=== PATIENT | female | born 1935 | race Caucasian/White ===

== ENCOUNTER 2017-05-10 06:32 | Inpatient (IN) | payer MEDICARE ==
--- NOTE | ~2017-05-10 | OP ---
Record Of Operation [facility] [address] [place]. [address] NAME: DEXTER RIVERA : 35 STATUS : ADM IN PAT#: [id number] AGE: 82 ADM/REG DATE : 05/10/17 MR#: [id number] REPORT SERV DATE: 05/11/17 DICTATED BY: CLIFF CAIN DATE: 05/10/17 REPORT STATUS : Draft TRANSCRIBED BY: MODCassia DATE: 05/10/17 DATE OF PROCEDURE: 05/10/2017 PREOPERATIVE DIAGNOSES: 1. Aortic valve stenosis. 2. Acute on chronic diastolic heart failure. 3. Osteoarthritis. POSTOPERATIVE DIAGNOSES: 1. Aortic valve stenosis. 2. Acute on chronic diastolic heart failure. 3. Osteoarthritis. PROCEDURE PERFORMED: 1. Right transfemoral transcatheter aortic valve replacement, 23 mm S3 (pericardial) valve. 2. Left femoral venous placement of temporary ventricular pacemaker. 3. ProGlide closure of the right femoral artery x2 and left femoral artery x1. 4. Ascending aortography. 5. Right iliac angiography. 6. Transthoracic echocardiography. ZONE MAINTENANCE TECHNICIAN: Dr. Laureano Sampson. TABLEAU DEVELOPER: Wily Reaves. PRIMARY CARE CRYPTOLOGIC TECHNICIAN TECHNICAL: Dr. Bates. PRIMARY CARE PHYSICIAN: Dr. Rancho Elliott. 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 She has progressive dyspnea with exertion and fatigue and occasional chest discomfort. She has known aortic valve stenosis. On echocardiography, her ventricular function was good with an EF of 55%. Her valve area was estimated at 0.53 sq cm. Her peak gradient was 60 mmHg and mean gradient of 32 mmHg. Cardiac catheterization demonstrated nonobstructive coronary artery disease with good ventricular function, valve area and elevated gradients were confirmed. We were asked to see the patient for possible evaluation for aortic valve replacement. It was felt that the patient was at least intermediate risk patient and that consideration for TAVR procedure be performed. She was discussed with the TAVR conference and it was felt that the patient would be a suitable candidate for possible TAVR and this was shared with the family, who wished to proceed. FINDINGS AT OPERATION: 1. Total time of rapid pacing is 23 seconds. Actual time of TAVR deployment was 0911 hours. 2. Pre-deployment cardiac output 3.4, post-deployment cardiac output 4.5. Record Of Operation [facility] [address] [place]. [address] NAME: DEXTER RIVERA : 35 STATUS : ADM IN PAT#: [id number] AGE: 82 ADM/REG DATE : 05/10/17 MR#: [id number] REPORT SERV DATE: 05/11/17 DICTATED BY: CLIFF CAIN DATE: 05/10/17 REPORT STATUS : Draft TRANSCRIBED BY: MODCassia DATE: 05/10/17 3. Valve area pre-deployment 0.58. Post-deployment valve area 2.2 sq cm. 4. Pre-implant aortic pressures: Systolic 108, diastolic 54, mean 73 mmHg. Post-implant aortic pressures: Systolic 109, diastolic 60, mean 77 mmHg. 5. Pre-implant AV gradient: Mean 29, peak at 26 mmHg. Post-implant AV gradient: Mean 4, peak 4 mmHg. 6. Total contrast volume used 85 mL. #8 fluoro time was 14.0 minutes. #9 estimated blood loss less than 50 mL. 7. Total mGy used was 858. 8. AI index was 45. 9. Transthoracic echocardiography demonstrated only trace perivalvular leak following deployment. 10.Right femoral artery had mild (40-50%) lesion following ProGlide placement on the right side. Pedal pulses were present. 11.Bilateral pedal pulses were present on transfer to the intensive care unit. The patient was awake and doing well. PATHOLOGIC SPECIMENS: None. DESCRIPTION OF PROCEDURE: The patient was brought to the operating suite in the hybrid area. She was placed on the hybrid operating table and laid in a supine position. She was sedated and given MAC anesthesia by anesthesia provider. The patient's abdomen, groin, and legs were prepped with Hibiclens and ChloraPrep and draped with Ioban sterile sheets. Bilateral femoral artery and left femoral venous access was obtained using micropuncture technique with catheter placement and a confirmatory angiography for the femoral arteries. A 6-Mexican introducers were placed in each vessel. Temporary ventricular venous pacemaker advanced up the left femoral vein, and under fluoroscopic guidance, placed in the right ventricle. Pacing thresholds were then confirmed and adequate thresholds were obtained. Then, a pigtail catheter with guidewire was advanced up the left femoral artery sheath into the ascending aorta and the pigtail catheter advanced into the noncoronary sinus. The plummet angles for cinematography were then confirmed with blush aortography. Next, guidewire was placed through the right femoral artery sheath and this was removed. Two ProGlide closure devices were deployed in the right femoral artery and not secured. Then, after the 2nd ProGlide was placed, an exchange catheter was placed and the Lunderquist wire advanced into the ascending aorta. The Montesinos sheath was brought up to the field and this was advanced into the descending thoracic aorta. Then, an AL1 catheter was advanced over the Lunderquist wire which was removed and a straight wire advanced through the AL1 catheter just above the aortic valve. We then crossed the valve and the AL1 catheter was left in place and the pigtail wire advanced through the AL1 catheter into the left ventricular apex. Then, a pigtail catheter was advanced up into the left ventricle and simultaneous pressure readings were obtained in the ascending aorta, left ventricle. Next, an extra stiff guidewire was advanced through the pigtail catheter and placed into the Record Of [address] [place]. [address] NAME: DEXTER RIVERA : 35 STATUS : ADM IN [facility]#: [id number] AGE: 82 ADM/REG DATE : 05/10/17 MR#: [id number] REPORT SERV DATE: 05/11/17 DICTATED BY: CLIFF CAIN DATE: 05/10/17 REPORT STATUS : Draft TRANSCRIBED BY: ARCHANA DATE: 05/10/17 left ventricle. Then, the Montesinos delivery system with the valve in place was brought up to the field. The patient was heparinized at the time of sheath placement. The Montesinos delivery system was advanced into the descending thoracic aorta where the balloon deployment system was back onto the valve. We then advanced the delivery system up around the aortic arch and across the valve. Then, alignment of the valve was performed. Rapid atrial pacing was begun and power injector contrast aortography performed and confirmed the positioning of the valve. Then, the valve was deployed using the balloon. Once this was completed, the valve delivery system was brought back into the descending thoracic aorta while leaving the extra stiff wire in the ventricle. Blush aortography demonstrated minimal AI. Echocardiography also confirmed minimal or trace perivalvular leak. Then, the valve delivery system was brought out of the right femoral artery sheath. The extra stiff wire was removed and the exchange catheter placed in the right femoral artery. The sheath was then removed from the right femoral artery and the two ProGlide closure devices were secured. Good hemostasis was obtained. The pigtail catheter in the left femoral artery was then brought back down to the aortic bifurcation and right iliofemoral angiography was performed demonstrating a small notch in the right femoral artery that was considered to be less than 50%. Pedal pulses were present on the right side. Then, a straight guidewire was advanced and the pigtail catheter removed from the left femoral artery. Six-Mexican sheath was removed. The left femoral artery site was closed using a single ProGlide closure device. The [place]rysten catheter was removed by Anesthesia from the right IJ. The temporary venous pacemaker was removed from the left femoral vein. The patient tolerated the procedure well. There were no complications. DISPOSITION: The patient was taken to the intensive care unit, extubated in stable condition with good pedal pulses. ALLI/ARCHANA Cliff Cain M.D. / [id number] CC: Madison Azar M.D. FREDERICK DIBRELL, MD
--- NOTE | ~2017-05-10 | OP ---
Record Of Operation [facility] [address] [place]. [address] NAME: BENJAMIN KULKARNI : 35 STATUS : ADM IN [facility]#: [id number] AGE: 82 ADM/REG DATE : 05/10/17 MR#: [id number] REPORT SERV DATE: 05/10/17 DICTATED BY: OLAYINKA PIERRE DATE: 05/10/17 REPORT STATUS : Draft TRANSCRIBED BY: ARCHANA DATE: 05/10/17 DATE OF PROCEDURE: TAVR Note PROCEDURE: Right transfemoral transcatheter aortic valve replacement using 23 mm Montesinos S3 valve. INDICATION FOR THE PROCEDURE: Ms. Benjamin Kulkarni is an 82-year-old woman, with severe aortic stenosis. Her echocardiogram demonstrated a valve area of 0.5, mean gradient 32, peak gradient 60, EF of 55%. Catheterization demonstrated no obstructive disease with severe AF, valve area of 0.6, mean gradient 36. She was seen by both Dr. Cain and Dr. Evangelista, who felt she was at high risk for surgical aortic valve replacement and should be referred for transcatheter aortic valve replacement. Her predicted mortality using STS score 3.8%, predicted morbidity and mortality 18.5%. Morbidity and mortality by the EuroSCOR was 3.6%. She presents with [place] Heart Association class 2-3 symptoms. POSTOPERATIVE DIAGNOSIS: Successful placement of Montesinos 23 mm S3 valve via right transfemoral approach. OPERATORS: 1. Cliff Cain M.D. 2. Olayinka Pierre M.D. 3. Laureano Sampson M.D. OPERATIVE TECHNIQUE: The patient was prepped and draped in the usual sterile fashion. She received propofol anesthesia. She was not intubated. She did have a radial A-line and a right heart catheter. She did not have a Britt catheter. The right and left groins were anesthetized with lidocaine 1%, 12 mL. Access of both left and right femoral artery was obtained using the micropuncture technique, angiogram confirmed access to common femoral artery, 6-Turkmen sheaths were placed. A 6-Turkmen sheath was placed in the left femoral vein as well. The pacemaker was inserted via the left femoral vein, a pigtail catheter was placed via the left femoral artery to allow positioning of the valve. She received heparin IV, activating clotting time was therapeutic. Two ProGlide sutures were placed in the right femoral artery at the 10 o'clock and 2 o'clock position in the pre- close technique. We then placed the J-wire through the right femoral artery sheath, a multipurpose catheter was placed into the ascending aorta, the Lunderquist wire was placed into the ascending aorta through the multipurpose catheter. Record Of Operation [facility] [address] [place]. [address] NAME: BENJAMIN KULKARNI : 35 STATUS : ADM IN PAT#: [id number] AGE: 82 ADM/REG DATE : 05/10/17 MR#: [id number] REPORT SERV DATE: 05/10/17 DICTATED BY: OLAYINKA PIERRE DATE: 05/10/17 REPORT STATUS : Draft TRANSCRIBED BY: ARCHANA DATE: 05/10/17 We then dilated the right femoral artery and then placed the Montesinos sheath. We then delivered the Montesinos valve. The valve was positioned in the descending thoracic aorta. We crossed the [place] valve without difficulty. With rapid ventricular pacing the valve was deployed. Post deployment, the echocardiogram demonstrated trivial aortic insufficiency. Thoracic aortogram without the wire demonstrated no aortic insufficiency. We measured the pressures between the left ventricle and the ascending aorta. We then removed the Montesinos sheath over the J-wire. The ProGlide sutures were tightened into position. The completion angiogram demonstrated no stenosis and no extravasation from the access site. The left femoral artery sheath was removed, a ProGlide suture was placed in the left femoral artery as well. The pacemaker was removed. The right heart catheter was removed. The total rapid pacing time was 23 seconds. The actual time of valve deployment was 09:11 a.m. The cardiac output pre deployment 3.4 L/minute, post deployment 4.5 L/minute. The valve area pre-deployment was 0.6 cm2, post deployment valve area was 2.2 cm2. The blood pressure pre-deployment was 108/54, mean 73, heart rate 69. Post deployment blood pressure was 109/60, mean 77, heart rate 77. The gradient pre-deployment was 29 mmHg mean, peak 26 mmHg. Post deployment the mean gradient was 4 mmHg, peak gradient 4 mmHg. Total contrast volume used 85 mL. The fluoro time was 14 minutes. The estimated blood loss was less than 50 mL. Total radiation dose was 858 mGy. The AI index was 45. Again, the chest wall echo demonstrated trivial AI, thoracic aortogram demonstrated no AI. In short, the patient underwent a right transfemoral transcatheter aortic valve replacement using a 23 mm Montesinos valve. Two ProGlide sutures were used at the access site. There was no AI by thoracic aortogram, trace AI by the chest wall echo. The patient will be treated with the clopidogrel and aspirin for six months. VAISHALI/ARCHANA Olayinka Pierre M.D. / [id number] Record Of [address] [address] NAME: BENJAMIN KULKARNI : 35 STATUS : ADM IN [facility]#: [id number] AGE: 82 ADM/REG DATE : 05/10/17 MR#: [id number] REPORT SERV DATE: 05/10/17 DICTATED BY: OLAYINKA PIERRE DATE: 05/10/17 REPORT STATUS : Draft TRANSCRIBED BY: ARCHANA DATE: 05/10/17 CC: Cliff Cain M.D.
[~2017-05-10 06:32] MED LIST: AMOXIL500 MG PO; ASAB PO; B12 SL; CALTRA600D PO; CENTRUM TAB1 TAB PO; FOSAMAX70 MG PO; GLUCCHONDR PO; PRILOSEC OTC20 MG PO; T PO; VITAMIN D31000 UNIT PO
[2017-05-10 10:48] LABS: BASOPHILS 0.6 %; BASOPHILS ABSOLUTE 0.03 10/3/uL (0.0-0.16); EOSINOPHILS 2.1 %; HEMOGLOBIN 10.8 g/dL (12.0-16.0); IMMATURE GRANULOCYTES 0.2 %; IMMATURE GRANULOCYTES ABSOLUTE 0.01 10/3/uL (0.0-0.11); LYMPHOCYTES ABSOLUTE 1.76 10/3/uL (0.67-4.30); MEAN CORPUS HGB CONC 33.5 g/dL (32.0-36.0); MEAN CORPUSCULAR HEMOGLOB 33.3 pg (26.0-34.0); MEAN CORPUSCULAR VOLUME 99.4 fL (80-100); MEAN PLATELET VOLUME 10.1 fL (9.2-13.0); MONOCYTES 9.2 %; MONOCYTES ABSOLUTE 0.44 10/3/uL (0.21-1.20); NEUTROPHILS 50.9 %; NEUTROPHILS ABSOLUTE 2.42 10/3/uL (2.02-8.40); PLATELET COUNT 149 10/3/uL (150-400); RED CELL COUNT 3.24 10/6/uL (4.0-5.6); WHITE BLOOD CELLS 4.8 10/3/uL (4.5-10.5)
[2017-05-10 10:49] LABS: HEMATOCRIT 32.2 % (36.0-48.0); MANUAL DIFF NO %
[2017-05-10 10:58] LABS: BUN (BLOOD UREA NITROGEN) 14 MG/DL (6-23); CALCIUM, SERUM 7.9 MG/DL (8.5-10.4); CHLORIDE, SERUM 106 MMOL/L (96-112); CO2 (CARBON DIOXIDE) 26 MMOL/L (24-34); CREATININE 0.75 MG/DL (0.55-1.02); GFR AFRICAN AMERICAN 86 ML/MIN (>=60); GFR NON AFRICAN AMERICAN 74 ML/MIN (>=60); GLUCOSE, SERUM 80 MG/DL (60-99); SODIUM, SERUM 140 MMOL/L (135-148)
[2017-05-10 11:01] LABS: POTASSIUM, SERUM 4.8 MMOL/L (3.5-5.3)
[2017-05-10 12:55] LABS: INTERNATIONAL NORMAL RATI 1.4 UNITS (-)
[2017-05-10 13:06] LABS: PROTIME (NOT ORD) 16.8 SEC (12.0-14.5)
[2017-05-10 13:08] LABS: PARTIAL THROMBO TIME > 150.0 SEC (22.5-37.2)
[2017-05-10 18:08] LABS: HEMATOCRIT 33.8 % (36.0-48.0); HEMOGLOBIN 11.2 g/dL (12.0-16.0)
[2017-05-11 04:47] LABS: BASOPHILS 0.3 %; BASOPHILS ABSOLUTE 0.02 10/3/uL (0.0-0.16); EOSINOPHILS 0.4 %; EOSINOPHILS ABSOLUTE 0.03 10/3/uL (0.0-0.53); HEMATOCRIT 31.7 % (36.0-48.0); HEMOGLOBIN 10.7 g/dL (12.0-16.0); IMMATURE GRANULOCYTES 0.1 %; IMMATURE GRANULOCYTES ABSOLUTE 0.01 10/3/uL (0.0-0.11); LYMPHOCYTES 25.3 %; LYMPHOCYTES ABSOLUTE 1.88 10/3/uL (0.67-4.30); MEAN CORPUS HGB CONC 33.8 g/dL (32.0-36.0); MEAN CORPUSCULAR HEMOGLOB 33.6 pg (26.0-34.0); MEAN CORPUSCULAR VOLUME 99.7 fL (80-100); MEAN PLATELET VOLUME 9.9 fL (9.2-13.0); MONOCYTES 10.2 %; MONOCYTES ABSOLUTE 0.76 10/3/uL (0.21-1.20); NEUTROPHILS 63.7 %; NEUTROPHILS ABSOLUTE 4.74 10/3/uL (2.02-8.40); PLATELET COUNT 118 10/3/uL (150-400); RBC DISTRIBUTION WIDTH 14.2 % (12.0-16.0); RED CELL COUNT 3.18 10/6/uL (4.0-5.6)
[2017-05-11 04:49] LABS: MANUAL DIFF NO %; WHITE BLOOD CELLS 7.4 10/3/uL (4.5-10.5)
[2017-05-11 05:02] LABS: BUN (BLOOD UREA NITROGEN) 17 MG/DL (6-23); CALCIUM, SERUM 8.3 MG/DL (8.5-10.4); CHLORIDE, SERUM 107 MMOL/L (96-112); CO2 (CARBON DIOXIDE) 26 MMOL/L (24-34); CREATININE 0.79 MG/DL (0.55-1.02); GFR AFRICAN AMERICAN 81 ML/MIN (>=60); GFR NON AFRICAN AMERICAN 70 ML/MIN (>=60); POTASSIUM, SERUM 3.7 MMOL/L (3.5-5.3); SODIUM, SERUM 140 MMOL/L (135-148)
[2017-05-11 05:04] LABS: GLUCOSE, SERUM 73 MG/DL (60-99)
[2017-05-11 12:08] LABS: HEMOGLOBIN 11.6 g/dL (12.0-16.0)
[2017-05-11 12:09] LABS: HEMATOCRIT 35.4 % (36.0-48.0)
[2017-05-11 12:17] LABS: POTASSIUM, SERUM 4.2 MMOL/L (3.5-5.3)
[2017-05-11] MEDS ORDERED: HALF81 PO (14:51)
[2017-05-11] MEDS ORDERED: PLAVIX PO (14:51)
== END 2017-05-11 16:31 | disposition home or self-care (01) | DRG 266 ==
LOC: SDC/OF 06:32 → CVICU 08:43
PROVIDERS: Thoracic Surgery (Cardiothoracic Vascular Surgery)
PROC: 02RF38Z Replacement of Aortic Valve with Zooplastic Tissue, Percutaneous Approach (ICD-10-PCS; principal; 2017-05-10 07:00)
PROC: B246YZZ Ultrasonography of Right and Left Heart using Other Contrast (ICD-10-PCS; 2017-05-10 07:00)
DX: I35.0 Nonrheumatic aortic (valve) stenosis (principal); I50.33 Acute on chronic diastolic (congestive) heart failure; Z00.6 Encounter for examination for normal comparison and control in clinical research program; M19.90 Unspecified osteoarthritis, unspecified site; M81.0 Age-related osteoporosis without current pathological fracture; Z87.891 Personal history of nicotine dependence; I25.10 Atherosclerotic heart disease of native coronary artery without angina pectoris
CPT/HCPCS: 36415; 71010; 80048; 82330; 82803; 82947; 83735; 83880; 84132; 84295; 85014; 85018; 85025; 85347; 85610; 85730; 86850; 86900; 86901; 93306; 93312; 93320; 93325; 94640; A9270-GY; C1769; C1894; J0690; J2250; J2370; J2405; J3010; J3480